=== PATIENT | female | born 1950 | race Caucasian/White ===

== ENCOUNTER 2024-06-03 14:18 | Emergency (ER) | payer OTHER ==
[~2024-06-03] VITALS: Ht 160 cm; Wt 70.3 kg
[2024-06-03] MEDS ORDERED: LORazepam 2 MG/ML 1ML Injection IV ONE ×2 (14:40→16:30)
[2024-06-03 14:53] LABS: BASOPHILS ABSOLUTE AUTO 0.04 K/mm3 (0.00-0.23); BASOPHILS PERCENT AUTO 1 % (0-2); EOSINOPHILS ABSOLUTE AUTO 0.05 K/mm3 (0.00-0.68); EOSINOPHILS PERCENT AUTO 1 % (0-6); Hematocrit 44.6 % (33.0-51.0); Hemoglobin 15.3 g/dL (11.5-16.0); IMMATURE GRAN ABSOLUTE AUTO 0.01 K/mm3 (0.00-0.10); IMMATURE GRAN PERCENT AUTO 0 % (0-1); LYMPHOCYTES ABSOLUTE AUTO 1.05 K/mm3 (0.84-5.20); LYMPHOCYTES PERCENT AUTO 17 % (21-46); MONOCYTES ABSOLUTE AUTO 0.54 K/mm3 (0.16-1.47); MONOCYTES PERCENT AUTO 9 % (4-13); Mean Corpuscular HGB 31.3 pg (26.0-34.0); Mean Corpuscular HGB Conc 34.3 g/dL (31.5-36.5); Mean Corpuscular Volume 91 fL (80-100); Mean Platelet Volume 10.9 fL (9.1-12.4); NEUTROPHILS ABSOLUTE AUTO 4.55 K/mm3 (1.96-9.15); NEUTROPHILS PERCENT AUTO 73 % (41-73); Platelet Count 199 K/mm3 (150-400); RDW Coefficient Variation 12.8 % (11.7-14.2); RDW Standard Deviation 42.5 fL (35.1-46.3); Red Blood Cell Count 4.89 M/mm3 (3.80-5.20); White Blood Cell Count 6.24 K/mm3 (4.00-11.30)
[2024-06-03 15:23] LABS: Albumin, Blood 4.1 g/dL (3.4-5.0); Bilirubin, Total 0.8 mg/dL (0.1-1.0); Bun/Creatinine Ratio 18.5 (12.0-20.0); Calcium, Blood 9.4 mg/dL (8.5-10.1); Creatinine, Blood 0.65 mg/dL (0.40-1.00); Free Thyroxine 1.19 ng/dL (0.70-1.60); Potassium, Blood 4.4 mmol/L (3.5-5.5); Thyroid Stimulating Hormone 1.04 uIU/mL (0.360-4.800); Total Protein, Blood 8.1 g/dL (6.4-8.2)
[2024-06-03] MEDS ORDERED: Haloperidol 1 MG Tab PO ONE (16:30)
[2024-06-03] MEDS ORDERED: NS 1,000 ML IV SCH (16:55)
[2024-06-03] MEDS ORDERED: Morphine Sulfate 4 MG/1 ML Injection IV ONE (16:55)
[2024-06-03] MEDS ORDERED: BACLOFEN10 M4 PO (17:06)
[2024-06-03] MEDS ORDERED: ATORVALIQ20 MG/5 ML (17:06)
[2024-06-03] MEDS ORDERED: TRAZ50 PO (17:06)
--- NOTE | 2024-06-03 17:08 | NUR ---
PALLIATIVE CARE NOTE: UPON ARRIVAL PT IS IN GURNEY AWAKE AND SMILES WITH INTERACTION. PT APPEARS WELL NOURISHED. SHE IS GRUNTING AT TIMES, BEGINS VERY TREMOROUS SHAKING IN HER HANDS AT TIMES. SHE IS SHAKING HER LEGS. PT NEPHEW BRAYAN RÍOS ([phone]) PRESENT AT BEDSIDE AND ANSWERS MEDICAL HISTORY AND PRESENT SYMPTOMS QUESTIONS. 6 MONTHS AGO PT WAS WALKING AROUND THE BLOCK, SHE WAS FEEDING SELF ABLE TO GO TO THE BATHROOM AND WAS CONTINENT. ONE MONTH AGO PT HAD SIGNIFICANT DECLINE REQUIRING TO BE FED BY CAREGIVERS, SHE HAD INCREASED TREMORS AND PAIN AND WAS ABLE TO WALK WITH A WALKER. 3 DAYS AGO PT NEEDED ASSISTANCE WITH AMBULATION, WAS CALLING OUT WITH INCREASED PAIN AND AGITATION. PT HAS HISTORY OF LUPUS, FRONTAL LOBE DEMENTIA. ON FURTHER ASSESSMENT PT ABD IS DISTENDED AND SLIGHTLY FIRM. ASKED PT IF SHE HAD TO GO TO THE BATHROOM AND SHE SHOOK HER HEAD YES. WITH ROLLING TO HER LEFT SIDE PT SCREAMS OUT. WHEN ASKED IF SHE HAS PAIN SHE STATES "ACHY". PT CONTINUED TO SCREAM OUT IN PAIN WHEN ROLLING HER TO GET HER ON A BED PATEL TO URINATE. PT ATTENDS ON WERE WET AND HAD FOUL SMELLING URINE. CLEANSED PT PRIOR TO PLACING BEDPAN SO WE COULD OBTAIN CLEAN CATCH. ULTIMATELY PT DID NOT URINATE. BLADDER SCAN REVEALED [address] BOO NOTIFIED OF SYMPTOMS. PER DR. BOO HE WOULD TREAT FOR POSSIBLE DEHYDRATION AND ORDER L HIP X-RAY. FAMILY INFORMED WE WILL FOLLOW-UP IN THE MORNING IF MAXI IS ADMITTED. ADVISED IF SHE IS NOT ADMITTED AND SYMPTOMS CONTINUE TO GET REFERRAL FROM PCP FOR HOSPICE EVALUATION. COLLABORATED WITH BEDSIDE RN AND PROVIDER. ON MILITARY COMMUNICATIONS SPECIALIST PT
[2024-06-03] MEDS ORDERED: FentaNYL Citrate 50 MCG/ML 2 ML Injection IV ONE (17:40)
[2024-06-03] MEDS ORDERED: QUEtiapine Fumarate 50 MG TAB PO ONE (17:40)
[2024-06-03 18:54] LABS: Source, Urine Straight Cath
[2024-06-03 19:03] LABS: Appearance, Urine Hazy (Clear); Bilirubin, Urine Neg (Neg); Blood, Urine 3+ (Neg); Color, Urine Yellow (P-Yellow); Glucose Qualitative, Urine Neg (Neg); Ketones, Urine Neg (Neg); Leukocyte Esterase, Urine 3+ (Neg); Nitrite, Urine Neg (Neg); Protein, Urine 2+ (Neg); Urobilinogen, Urine NORM (Normal)
[2024-06-03 19:40] LABS: Bacteria Many /hpf; Mucus Mod (0-Heavy); Squamous Epithelial Cells Rare /hpf (Few); Transitional Epithelial Cells Rare /hpf (0-Rare); White Blood Cells, Urine 50-100 /hpf (0-5)
[2024-06-03] MEDS ORDERED: CefTRIAXone Sodium 1,000 MG in NS 50 ML IV ONE (20:15)
[2024-06-03 21:00] VITALS: BP 122/73
[2024-06-03] MEDS ORDERED: QUET25 PO (21:12)
[2024-06-03] MEDS ORDERED: CEPH500 PO (21:12)
== END 2024-06-03 21:20 | disposition home or self-care (01) ==
LOC: ER 14:18
PROVIDERS: Emergency Medicine
DX: N39.0 Urinary tract infection, site not specified (principal); R45.1 Restlessness and agitation; G31.09 Other frontotemporal neurocognitive disorder; F02.80 Dementia in other diseases classified elsewhere, unspecified severity, without behavioral disturbance, psychotic disturbance, mood disturbance, and anxiety
CPT/HCPCS: 70450; 71045; 72170; 80053; 81001; 84439; 84443; 85025; 87077; 87086; 87186; 93005; 93010; 93970; 96365; 96375; 99285-25; A9270; J0696; J2060; J2270; J3010; J7030

== ENCOUNTER 2024-06-12 07:34 | Emergency (ER) | payer OTHER ==
[~2024-06-12] VITALS: Ht 165.1 cm; Wt 86.2 kg
[~2024-06-12 07:34] MED LIST: ATORVALIQ20 MG/5 ML; BACLOFEN10 M4 PO; CEPH500 PO; QUET25 PO; TRAZ50 PO
[2024-06-12] MEDS ORDERED: PHENA200 (08:01)
[2024-06-12] MEDS ORDERED: Cipro500 MG PO (08:01)
[2024-06-12] MEDS ORDERED: QUETIAPINE FUMA25 MG PO (08:01)
[2024-06-12] MEDS ORDERED: ATOR40TA PO (08:02)
[2024-06-12 08:39] LABS: Source, Urine Straight Cath
[2024-06-12 08:43] LABS: Appearance, Urine Clear (Clear); Bilirubin, Urine Neg (Neg); Blood, Urine Neg (Neg); Color, Urine Yellow (P-Yellow); Glucose Qualitative, Urine Neg (Neg); Ketones, Urine Neg (Neg); Leukocyte Esterase, Urine 1+ (Neg); Nitrite, Urine Neg (Neg); Protein, Urine Neg (Neg); Urobilinogen, Urine NORM (Normal)
[2024-06-12 08:56] LABS: BASOPHILS ABSOLUTE AUTO 0.05 K/mm3 (0.00-0.23); BASOPHILS PERCENT AUTO 1 % (0-2); EOSINOPHILS ABSOLUTE AUTO 0.11 K/mm3 (0.00-0.68); EOSINOPHILS PERCENT AUTO 2 % (0-6); Hematocrit 42.7 % (33.0-51.0); Hemoglobin 14.4 g/dL (11.5-16.0); IMMATURE GRAN ABSOLUTE AUTO 0.03 K/mm3 (0.00-0.10); IMMATURE GRAN PERCENT AUTO 1 % (0-1); LYMPHOCYTES ABSOLUTE AUTO 0.93 K/mm3 (0.84-5.20); LYMPHOCYTES PERCENT AUTO 18 % (21-46); MONOCYTES ABSOLUTE AUTO 0.47 K/mm3 (0.16-1.47); MONOCYTES PERCENT AUTO 9 % (4-13); Mean Corpuscular HGB 30.9 pg (26.0-34.0); Mean Corpuscular HGB Conc 33.7 g/dL (31.5-36.5); Mean Corpuscular Volume 92 fL (80-100); Mean Platelet Volume 10.9 fL (9.1-12.4); NEUTROPHILS ABSOLUTE AUTO 3.47 K/mm3 (1.96-9.15); NEUTROPHILS PERCENT AUTO 69 % (41-73); Platelet Count 163 K/mm3 (150-400); RDW Coefficient Variation 12.7 % (11.7-14.2); RDW Standard Deviation 42.6 fL (35.1-46.3); Red Blood Cell Count 4.66 M/mm3 (3.80-5.20); White Blood Cell Count 5.06 K/mm3 (4.00-11.30)
[2024-06-12 09:10] LABS: Bacteria Few /hpf; Mucus Light (0-Heavy); Red Blood Cells, Urine 0-2 /hpf (0-2); Squamous Epithelial Cells Few /hpf (Few)
[2024-06-12 09:18] LABS: Albumin, Blood 3.8 g/dL (3.4-5.0); Bilirubin, Total 0.6 mg/dL (0.1-1.0); Bun/Creatinine Ratio 23.5 (12.0-20.0); Calcium, Blood 9.2 mg/dL (8.5-10.1); Creatinine, Blood 0.68 mg/dL (0.40-1.00); Globulin, Blood 3.8 g/dL (2.2-4.0); Potassium, Blood 4.3 mmol/L (3.5-5.5); Total Protein, Blood 7.6 g/dL (6.4-8.2)
[2024-06-12 09:39] LABS: CORONAVIRUS COVID-19 AG Negative (NEGATIVE); INFLUENZA A AG Negative (NEGATIVE); INFLUENZA B AG Negative (NEGATIVE)
[2024-06-12] MEDS ORDERED: Ketorolac Tromethamine 15mg Vial IV ONE (09:50)
[2024-06-12 12:00] VITALS: BP 160/90
== END 2024-06-12 12:44 | disposition home or self-care (01) ==
LOC: ER 07:34
PROVIDERS: Student in an Organized Health Care Education/Training Program
DX: R45.1 Restlessness and agitation (principal); N39.0 Urinary tract infection, site not specified; Z79.899 Other long term (current) drug therapy
CPT/HCPCS: 71045; 80053; 81001; 83690; 84484; 85025; 87086; 87428-QW; 93005; 93010; 96374; 99285-25; J1885

== ENCOUNTER → 2024-08-03 | Outpatient (CLI) | payer OTHER ==
[~2024-08-03] MED LIST changes: +ATOR40TA PO; +Cipro500 MG PO; +PHENA200; +QUETIAPINE FUMA25 MG PO
[2024-08-03 18:47] LABS: Squamous Epithelial Cells Few /hpf (Few)
[2024-08-03 18:48] LABS: Amorphous Light (0-Heavy); Bacteria Many /hpf
== END ==
LOC: LAB SHORT 17:56 → LAB 17:56
PROVIDERS: Nurse Practitioner Family
DX: R39.9 Unspecified symptoms and signs involving the genitourinary system (principal)
CPT/HCPCS: 81015

== ENCOUNTER → 2024-08-03 | Outpatient (CLI) | payer OTHER | LOC: LAB 17:53 → LAB SHORT 17:53 | DX: R39.9 Unspecified symptoms and signs involving the genitourinary system (principal) | CPT/HCPCS: 87086 ==

== ENCOUNTER → 2024-09-11 | Outpatient (CLI) | payer OTHER ==
[~2024-09-11] MED LIST changes: +ALEVAZOL56.7 G1 TOP; +ZINC OXIDE57 GM TOP
== END ==
LOC: LAB SHORT 12:30 → LAB 12:30
DX: R39.9 Unspecified symptoms and signs involving the genitourinary system (principal)
CPT/HCPCS: 87086

== ENCOUNTER 2024-09-13 11:14 | Emergency (ER) | payer OTHER ==
[~2024-09-13] VITALS: Ht 172.7 cm; Wt 108.9 kg
[~2024-09-13 11:14] MED LIST changes: -ALEVAZOL56.7 G1 TOP; -ZINC OXIDE57 GM TOP
[2024-09-13 12:31] LABS: Source, Urine Foley catheter
[2024-09-13 12:39] LABS: Appearance, Urine Clear (Clear); Bilirubin, Urine Neg (Neg); Blood, Urine Neg (Neg); Color, Urine Yellow (P-Yellow); Glucose Qualitative, Urine Neg (Neg); Ketones, Urine Neg (Neg); Leukocyte Esterase, Urine Neg (Neg); Nitrite, Urine Neg (Neg); Protein, Urine 1+ (Neg); Urobilinogen, Urine NORM (Normal)
[2024-09-13 13:17] LABS: BASOPHILS ABSOLUTE AUTO 0.06 K/mm3 (0.00-0.23); BASOPHILS PERCENT AUTO 1 % (0-2); EOSINOPHILS ABSOLUTE AUTO 0.19 K/mm3 (0.00-0.68); EOSINOPHILS PERCENT AUTO 2 % (0-6); Hematocrit 42.4 % (33.0-51.0); Hemoglobin 14.2 g/dL (11.5-16.0); IMMATURE GRAN ABSOLUTE AUTO 0.05 K/mm3 (0.00-0.10); IMMATURE GRAN PERCENT AUTO 1 % (0-1); LYMPHOCYTES ABSOLUTE AUTO 1.79 K/mm3 (0.84-5.20); LYMPHOCYTES PERCENT AUTO 22 % (21-46); MONOCYTES ABSOLUTE AUTO 0.93 K/mm3 (0.16-1.47); MONOCYTES PERCENT AUTO 12 % (4-13); Mean Corpuscular HGB 30.5 pg (26.0-34.0); Mean Corpuscular HGB Conc 33.5 g/dL (31.5-36.5); Mean Corpuscular Volume 91 fL (80-100); Mean Platelet Volume 11.1 fL (9.1-12.4); NEUTROPHILS ABSOLUTE AUTO 5.03 K/mm3 (1.96-9.15); NEUTROPHILS PERCENT AUTO 63 % (41-73); Platelet Count 209 K/mm3 (150-400); RDW Coefficient Variation 12.2 % (11.7-14.2); RDW Standard Deviation 40.3 fL (35.1-46.3); Red Blood Cell Count 4.66 M/mm3 (3.80-5.20); White Blood Cell Count 8.05 K/mm3 (4.00-11.30)
[2024-09-13 13:35] LABS: Bun/Creatinine Ratio 19.2 (12.0-20.0); Calcium, Blood 9.2 mg/dL (8.5-10.1); Creatinine, Blood 0.73 mg/dL (0.40-1.00); Potassium, Blood 4.3 mmol/L (3.5-5.5)
[2024-09-13 14:52] VITALS: BP 141/84
[2024-09-13] MEDS ORDERED: ALEVAZOL56.7 G1 TOP (14:55)
[2024-09-13] MEDS ORDERED: ZINC OXIDE57 GM TOP (14:55)
[2024-09-13] MEDS ORDERED: Fluconazole 100 MG Tab PO ONE (15:00)
== END 2024-09-13 16:08 | disposition home or self-care (01) ==
LOC: ER 11:14
PROVIDERS: Student in an Organized Health Care Education/Training Program
DX: L30.4 Erythema intertrigo (principal); B37.31 Acute candidiasis of vulva and vagina; G31.09 Other frontotemporal neurocognitive disorder; F02.80 Dementia in other diseases classified elsewhere, unspecified severity, without behavioral disturbance, psychotic disturbance, mood disturbance, and anxiety; Z79.899 Other long term (current) drug therapy
CPT/HCPCS: 74177; 80048; 85025; 99284-25; A9270; P9612; Q9967